=== PATIENT | female | born 1945 | race Caucasian/White ===

== ENCOUNTER → 2016-06-22 | Outpatient (REF) | payer MEDICARE, OTHER | LOC: M SFHCPLAZ 07:48 | PROVIDERS: ATTEND Family Medicine | DX: R73.01 Impaired fasting glucose (principal); Z79.899 Other long term (current) drug therapy ==

== ENCOUNTER → 2016-08-03 | Outpatient (CLI) | payer MEDICARE, BC ==
[~2016-08-03] MED LIST: ATEN25TA PO; AZEL0.1S3; DULE200A PO; IRBE75TA5 PO; MONT10TA2 PO; PROAAER10 PO; VESI5TAB2 PO; VOLT1GEL15 TD; ZYRT10CA PO
--- NOTE | 2016-08-03 10:09 | REPMRS ---
Patient History The patient states she had a clinical breast exam in 07/2016. No known family history of cancer. Digital Woman Screen Mammo: August 03, 2016 - Exam #: [id number] Bilateral CC and MLO view(s) were taken. Technologist: Jayde Givens, Technologist Prior study comparison: July 12, 2015, digital woman screen mammo performed at [facility]. July 10, 2014, digital woman screen mammo performed at [facility]. FINDINGS: There are scattered fibroglandular densities. There has been no change in the appearance of the mammogram from the prior studies. There is a mild amount of residual fibroglandular tissue which is fairly symmetric. There is no interval development of dominant mass, architectural distortion, or clustered microcalcification suggestive of malignancy. ASSESSMENT: BI-RADS/ACR category 1 mammogram. Negative. Recommendation Routine screening mammogram in 1 year (for women over age 40). This mammogram was interpreted with the aid of an FDA-approved computer-aided dectection system. Electronically Signed By: Alonzo Garrido MD 08/03/16 [id number]
--- NOTE | 2016-08-04 09:59 | DEXA ---
AP SPINE L1 - L4 1.035 -1.3 0.4 LT FEMUR TOTAL 0.998 -0.1 1.5 RT FEMUR TOTAL 0.943 -0.5 1.0 TOTAL BODY TOTAL OTHER DUAL FEMUR FRAX* ASSESSMENT Risk factors: None. 10 year probability of fracture Major osteoporotic fracture 8.7 % Hip fracture 1.0 % COMMENTS: Normal bone densitometry of the left hip. There is low bone density of the spine. There is low bone density of the right hip. The decreased density of the spine does represent a significant change. The decreased density of the left hip does represent a significant change. The increased density of the right hip does not represent a significant change. The density of the spine has decreased 17.9% since the initial exam on 2000. The spine density has decreased 8.7% since the most recent exam on 07/10/2014. The density of the left hip has decreased 7.5% since the initial exam on 2000. The density of the left hip has decreased 3.6% since the most recent exam on . The density of the right hip has decreased 11.3% since the initial exam on 12/21. The density of the right hip has increased 0.2% since the most recent exam on . FOLLOW-UP: Recommendation for the next bone density exam: 2 years. LON
== END ==
LOC: M WHC 08:03
PROVIDERS: ATTEND Family Medicine
DX: Z01.419 Encounter for gynecological examination (general) (routine) without abnormal findings (principal); Z12.31 Encounter for screening mammogram for malignant neoplasm of breast; M81.0 Age-related osteoporosis without current pathological fracture; Z12.12 Encounter for screening for malignant neoplasm of rectum
CPT/HCPCS: 77080; 82270; G0101; G0202

== ENCOUNTER 2016-09-17 06:37 | Outpatient (CLI) | payer MEDICARE, BC, OTHER ==
[~2016-09-17] VITALS: Ht 157.5 cm; Wt 83.9 kg
[2016-09-17] MEDS ORDERED: NS 1,000 ML IV SCH (07:15)
[2016-09-17] MEDS ORDERED: PROPOFOL 200 MG/20 ML VIAL As Ordered ONE (07:25)
--- NOTE | 2016-09-17 07:54 | ROOR ---
Patient Name: Mylene Nj Procedure Date: 09/17/2016 7:31 AM Date of : 1945 Age: 70 Room: [facility] Gender: Female Note Status: Finalized Procedure: Colonoscopy Indications: Screening for colorectal malignant neoplasm Providers: Devendra LIU MD Referring MD: Pérez Garcias MD Requesting Provider: Medicines: Monitored Anesthesia Care Complications: No immediate complications. Procedure: Pre-Anesthesia Assessment: - The heart rate, respiratory rate, oxygen saturations, blood pressure, adequacy of pulmonary ventilation, and response to care were monitored throughout the procedure. The Colonoscope was introduced through the anus and advanced to the cecum, identified by appendiceal orifice and ileocecal valve. The colonoscopy was performed without difficulty. The patient tolerated the procedure well. The quality of the bowel preparation was good. Findings: The perianal and digital rectal examinations were normal. A 3 mm polyp was found in the cecum. The polyp was sessile. The polyp was removed with a jumbo cold forceps. Resection and retrieval were complete. A 5 mm polyp was found in the sigmoid colon. The polyp was sessile. The polyp was removed with a cold snare. Resection and retrieval were complete. A few small-mouthed diverticula were found in the sigmoid colon. The exam was otherwise without abnormality on direct and retroflexion views. Impression: - One 3 mm polyp in the cecum, removed with a jumbo cold forceps. Resected and retrieved. - One 5 mm polyp in the sigmoid colon, removed with a cold snare. Resected and retrieved. - Diverticulosis in the sigmoid colon. - The examination was otherwise normal on direct and retroflexion views. Recommendation: - Repeat colonoscopy in 3 years for surveillance. - Telephone endoscopist for pathology results in 2 weeks. Devendra Liu MD Devendra LIU MD 09/17/2016 7:54:20 AM This report has been signed electronically. Number of Addenda: 0 Note Initiated On: 09/17/2016 7:31 AM Estimated Blood Loss: Estimated blood loss: none.
[2016-09-17 08:10] VITALS: BP 108/59
== END 2016-09-17 08:24 | disposition home or self-care (01) ==
LOC: M OPP 06:37
PROVIDERS: ATTEND Internal Medicine Gastroenterology
DX: Z12.11 Encounter for screening for malignant neoplasm of colon (principal); D12.0 Benign neoplasm of cecum; D12.5 Benign neoplasm of sigmoid colon; K57.30 Diverticulosis of large intestine without perforation or abscess without bleeding; I10 Essential (primary) hypertension; J45.909 Unspecified asthma, uncomplicated; M79.7 Fibromyalgia; Z79.899 Other long term (current) drug therapy; Z88.8 Allergy status to other drugs, medicaments and biological substances

== ENCOUNTER → 2016-10-21 | Outpatient (CLI) | payer MEDICARE, BC, OTHER ==
[2016-10-21 10:18] LABS: BASO % 0.9 % (0.0-1.0); EOS # 0.1 K/mm3 (0.0-0.50); LARGE UNSTAINED CELL # 0.1 K/mm3 (0.0-0.4); LARGE UNSTAINED CELL % 2.9 % (0.0-4.0); LYMPH # 1.3 K/mm3 (1.5-4.5); LYMPH % 31.4 % (24.0-44.0); MEAN CORPUSCULAR HEMOGLOBIN 28.6 pg (27.0-33.0); MEAN CORPUSCULAR HGB CONC 33.6 g/dl (32.0-36.5); MEAN CORPUSCULAR VOLUME 85.2 fl (80.0-96.0); MONO # 0.3 K/mm3 (0.0-0.8); MONO % 6.2 % (0.0-5.0); NEUTROPHILS # 2.3 K/mm3 (1.8-7.7); NEUTROPHILS % 55.6 % (36.0-66.0); PLATELET COUNT, AUTOMATED 227 k/mm3 (150-450); RED CELL DISTRIBUTION WIDTH 14.6 % (11.5-14.5)
[2016-10-21 10:35] LABS: ALBUMIN 3.9 GM/DL (3.2-5.2); ALBUMIN/GLOBULIN RATIO 1.05 (1.00-1.93); ALKALINE PHOSPHATASE 71 U/L (45-117); ALT/SGPT 30 U/L (12-78); ANION GAP 9 MEQ/L (8-16); AST/SGOT 17 U/L (15-37); BILIRUBIN,TOTAL 0.4 MG/DL (0.2-1.0); BLOOD UREA NITROGEN 19 MG/DL (7-18); CALCIUM LEVEL 8.2 MG/DL (8.8-10.2); CARBON DIOXIDE LEVEL 26 MEQ/L (21-32); CHLORIDE LEVEL 110 MEQ/L (98-107); CREATININE FOR GFR 0.69 MG/DL (0.55-1.02); GLOMERULAR FILTRATION RATE > 60.0 (>39); GLUCOSE, FASTING 100 MG/DL (83-110); POTASSIUM SERUM 4.1 MEQ/L (3.5-5.1); SODIUM LEVEL 145 MEQ/L (136-145); TOTAL PROTEIN 7.6 GM/DL (6.4-8.2)
== END ==
LOC: M WUC 08:27
PROVIDERS: ATTEND Family Medicine
DX: R73.01 Impaired fasting glucose (principal)

== ENCOUNTER → 2017-06-28 | Outpatient (CLI) | payer MEDICARE, BC, OTHER | LOC: M RAD 12:00 | DX: E04.1 Nontoxic single thyroid nodule (principal) | CPT/HCPCS: 76536 ==

== ENCOUNTER → 2017-07-14 | Outpatient (CLI) | payer MEDICARE, BC, OTHER ==
[~2017-07-14] MED LIST changes: -ATEN25TA PO; -AZEL0.1S3; -DULE200A PO; -IRBE75TA5 PO; +LIDOCAINE 1% MDV 20ML VIAL As Ordered; -MONT10TA2 PO; -PROAAER10 PO; -VESI5TAB2 PO; -VOLT1GEL15 TD; -ZYRT10CA PO
== END ==
LOC: M RADPRO 12:24
DX: E04.1 Nontoxic single thyroid nodule (principal)
CPT/HCPCS: 10022

== ENCOUNTER → 2017-07-30 | Outpatient (CLI) | payer MEDICARE, BC | LOC: M WHC 08:33 | DX: Z12.31 Encounter for screening mammogram for malignant neoplasm of breast (principal) | CPT/HCPCS: 77067 ==

== ENCOUNTER → 2017-12-03 | Outpatient (REF) | payer MEDICARE, OTHER ==
[2017-12-03 12:41] LABS: APPEARANCE, URINE CLEAR (CLEAR); BACTERIA, URINE AUTO NEGATIVE (NEGATIVE); BILIRUBIN, URINE AUTO NEGATIVE (NEGATIVE); BLOOD, URINE BLOOD NEGATIVE (NEGATIVE); COLOR, URINE YELLOW (YELLOW); GLUCOSE, URINE (UA) AUTO NEGATIVE (NEGATIVE); KETONE, URINE AUTO NEGATIVE (NEGATIVE); LEUKOCYTE ESTERASE, URINE AUTO 1+ (NEGATIVE); NITRITE, URINE AUTO NEGATIVE (NEGATIVE); PROTEIN, URINE AUTO NEGATIVE (NEGATIVE); RBC, URINE AUTO 0 /HPF (0-3); SPECIFIC GRAVITY URINE AUTO 1.013 (1.002-1.035); SQUAMOUS EPITHELIAL CELL UR AU 1 /HPF (0-6); UROBILINOGEN, URINE AUTO 0.2 mg/dL (0.0-2.0); WBC, URINE AUTO 2 /HPF (0-3)
[2017-12-03 12:48] LABS: ESTIMATED AVERAGE GLUCOSE 123 MG/DL (60-110); HEMOGLOBIN A1c 5.9 %
[2017-12-03 12:53] LABS: ALBUMIN 3.9 GM/DL (3.2-5.2); ALBUMIN/GLOBULIN RATIO 1.15 (1.00-1.93); ALKALINE PHOSPHATASE 70 U/L (45-117); ALT/SGPT 26 U/L (12-78); ANION GAP 5 MEQ/L (8-16); AST/SGOT 15 U/L (7-37); BILIRUBIN,TOTAL 0.4 MG/DL (0.2-1.0); BLOOD UREA NITROGEN 20 MG/DL (7-18); C REACTIVE PROTEIN QUANTITATIV < 0.30 MG/DL (0.00-0.30); CALCIUM LEVEL 8.6 MG/DL (8.8-10.2); CARBON DIOXIDE LEVEL 29 MEQ/L (21-32); CHLORIDE LEVEL 108 MEQ/L (98-107); CHOLESTEROL LEVEL 192 MG/DL (<200); CHOLESTEROL RISK RATIO 5.485 (<5); CREATININE FOR GFR 0.76 MG/DL (0.55-1.30); FREE T4 1.15 NG/DL (0.76-1.46); GLOMERULAR FILTRATION RATE > 60.0 (>39); GLUCOSE, FASTING 116 MG/DL (70-100); HDL CHOLESTEROL 35 MG/DL (>40); LDL CHOLESTEROL 112 MG/DL (<100); NON-HDL-C 157 MG/DL; POTASSIUM SERUM 4.3 MEQ/L (3.5-5.1); SODIUM LEVEL 142 MEQ/L (136-145); THYROID STIMULATING HORMONE 0.991 uIU/ML (0.358-3.740); TOTAL PROTEIN 7.3 GM/DL (6.4-8.2); TRIGLYCERIDES LEVEL 226 MG/DL (<150)
[2017-12-03 13:34] LABS: HEPATITIS C VIRUS ABY INDEX < 0.0 INDEX (<0.8)
[2017-12-03 14:30] LABS: CREATININE, URINE 84.1 MG/DL; MAU/CREAT RATIO 7.2 MCG/MG (0.0-30.0)
== END ==
LOC: M SFHCPLAZ 08:04
DX: E78.2 Mixed hyperlipidemia (principal); I10 Essential (primary) hypertension; Z79.899 Other long term (current) drug therapy
CPT/HCPCS: 84443

== ENCOUNTER → 2018-06-29 | Outpatient (REF) | payer MEDICARE, OTHER ==
[~2018-06-29] MED LIST changes: +ALEV220C2 PO; +ATEN25TA PO; +AZEL0.1S3; +BIOTCAP PO; +D 50CAP PO; +DULE200A PO; +FISH1CAP24 PO; +IRBE75TA5 PO; -LIDOCAINE 1% MDV 20ML VIAL As Ordered; +MONT10TA2 PO; +POTA75TA2 PO; +PROAAER10 PO; +RED1CAP5 PO; +TUMS500C PO; +VESI5TAB2 PO; +VOLT1GEL15 TD; +ZYRT10CA PO; +[UNRECOGNIZED DRUG - OTHER]; +[UNRECOGNIZED DRUG - OTHER]; +multizyme
[2018-06-29 11:07] LABS: BASO # 0.1 10^3/uL (0.0-0.2); BASO % 1.4 % (0.0-1.0); EOS # 0.1 10^3/uL (0.0-0.50); EOS % 2.1 % (0.0-3.0); HEMATOCRIT 41.9 % (36.0-47.0); LYMPH # 1.7 10^3/uL (1.5-4.5); LYMPH % 32.3 % (24.0-44.0); MEAN CORPUSCULAR HGB CONC 33.4 g/dl (32.0-36.5); MEAN CORPUSCULAR VOLUME 89.7 fl (80.0-96.0); MONO # 0.4 10^3/uL (0.0-0.8); MONO % 8.3 % (0.0-5.0); NEUTROPHILS # 2.9 10^3/uL (1.8-7.7); NEUTROPHILS % 55.7 % (36.0-66.0); PLATELET COUNT, AUTOMATED 251 10^3/uL (150-450); RED BLOOD COUNT 4.67 10^6/uL (4.00-5.40); WHITE BLOOD COUNT 5.2 10^3/uL (4.0-10.0)
[2018-06-29 11:11] LABS: APPEARANCE, URINE HAZY (CLEAR); BACTERIA, URINE AUTO NEGATIVE (NEGATIVE); BILIRUBIN, URINE AUTO NEGATIVE (NEGATIVE); BLOOD, URINE BLOOD NEGATIVE (NEGATIVE); COLOR, URINE YELLOW (YELLOW); GLUCOSE, URINE (UA) AUTO NEGATIVE (NEGATIVE); KETONE, URINE AUTO NEGATIVE (NEGATIVE); LEUKOCYTE ESTERASE, URINE AUTO 2+ (NEGATIVE); MUCUS, URINE SMALL (NEGATIVE); NITRITE, URINE AUTO NEGATIVE (NEGATIVE); PROTEIN, URINE AUTO NEGATIVE (NEGATIVE); RBC, URINE AUTO 6 /HPF (0-3); SQUAMOUS EPITHELIAL CELL UR AU 2 /HPF (0-6); UROBILINOGEN, URINE AUTO 0.2 mg/dL (0.0-2.0); WBC, URINE AUTO 15 /HPF (0-3)
[2018-06-29 11:33] LABS: ALBUMIN 3.7 GM/DL (3.2-5.2); ALT/SGPT 25 U/L (12-78); BILIRUBIN,TOTAL 0.5 MG/DL (0.2-1.0); BLOOD UREA NITROGEN 23 MG/DL (7-18); CALCIUM LEVEL 8.3 MG/DL (8.8-10.2); CARBON DIOXIDE LEVEL 29 MEQ/L (21-32); CHLORIDE LEVEL 106 MEQ/L (98-107); CHOLESTEROL LEVEL 169 MG/DL (<200); CREATININE FOR GFR 0.69 MG/DL (0.55-1.30); GLOMERULAR FILTRATION RATE > 60.0 (>39); GLUCOSE, FASTING 114 MG/DL (70-100); HDL CHOLESTEROL 34 MG/DL (>40); HEMOGLOBIN A1c 6.2 %; LDL CHOLESTEROL 99 MG/DL (<100); MAGNESIUM LEVEL 2.3 MG/DL (1.8-2.4); NON-HDL-C 135 MG/DL; POTASSIUM SERUM 4.2 MEQ/L (3.5-5.1); SODIUM LEVEL 140 MEQ/L (136-145); TOTAL PROTEIN 7.6 GM/DL (6.4-8.2); TRIGLYCERIDES LEVEL 181 MG/DL (<150)
[2018-06-29 12:52] LABS: MALB URINE SIEMENS 16.6 MG/L; MAU/CREAT RATIO 10.1 MCG/MG (0.0-30.0)
== END ==
LOC: M SFHCPLAZ 08:07
PROVIDERS: ATTEND Family Medicine
DX: I10 Essential (primary) hypertension (principal); R73.01 Impaired fasting glucose

== ENCOUNTER → 2018-07-08 | Outpatient (CLI) | payer MEDICARE, OTHER ==
--- NOTE | 2018-07-08 14:20 | REP ---
Clinical: Right hip pain. Technique: Neutral and frog lateral views of the right hip. Findings: Generalized age-related changes are appreciated. Subtle increased sclerosis to the acetabular roof with very minimal joint space narrowing and subtle marginal spurring noted. No acute fracture dislocation. No periarticular calcifications or loose bodies. Surrounding soft tissues normal. Impression: Generalized age-related changes. Electronically Signed by Rajan Pascal MD 07/08/2018 02:11 P
== END ==
LOC: M WUC 12:47
PROVIDERS: ATTEND Family Medicine
DX: M70.62 Trochanteric bursitis, left hip (principal)
CPT/HCPCS: 73502; 93005; G0463

== ENCOUNTER → 2018-07-18 | Outpatient (CLI) | payer MEDICARE, BC, OTHER ==
--- NOTE | 2018-07-18 13:57 | REP ---
REASON: Followup nodules. COMPARISON: 06/28/2017 The prior examination showed a dominant nodule on the right measuring 3.4 x 1.6 cm. That dominant nodule was drawn on the worksheet measuring smaller than all of the right lobe, which had a maximal length of 5.4 cm. Today's examination shows the right lobe of the thyroid to measure 6 x 2 x 1.2 cm and left lobe 5.5 x 2.2 cm in creased slightly from the prior exam. There is a complex cystic and solid mass of the right lobe which measures 2.9 x 1.6 x 1.8 cm, smaller in size from the prior examination minimally. Other smaller tiny nodules complex and solid are seen in the thyroid gland, unchanged. The isthmus measures 1.3 cm, essentially unchanged. IMPRESSION: Essentially no change. Electronically Signed by Alli Forrest DO 07/18/2018 02:00 P
== END ==
LOC: M RAD 12:29
PROVIDERS: ATTEND Family Medicine
DX: E04.2 Nontoxic multinodular goiter (principal)

== ENCOUNTER → 2018-08-02 | Outpatient (CLI) | payer MEDICARE, BC ==
--- NOTE | 2018-08-02 10:50 | REPMRS ---
Patient History The patient states she has not had a clinical breast exam in over a year. No known family history of cancer. No Hormone Replacement Therapy 3D TOMOSYNTHESIS WAS PERFORMED. The [facility] lifetime risk for breast cancer is 4.3%. Digital Woman Screen Mammo: August 02, 2018 - Exam #: [id number] Bilateral CC and MLO view(s) were taken. Technologist: Jayde Givens, Technologist Prior study comparison: July 30, 2017, bilateral digital woman screen mammo performed at [facility]. August 03, 2016, digital woman screen mammo performed at [facility]. FINDINGS: There are scattered fibroglandular densities. There has been no change in the appearance of the mammogram from the prior studies. There is a mild amount of residual fibroglandular tissue which is fairly symmetric. There is no interval development of dominant mass, architectural distortion, or clustered microcalcification suggestive of malignancy. Assessment: BI-RADS/ACR category 1 mammogram. Negative Mammogram. Recommendation Routine screening mammogram in 1 year (for women over age 40). This mammogram was interpreted with the aid of an FDA-approved computer-aided dectection system. Electronically Signed By: Alonzo Garrido MD 08/02/18 [id number]
--- NOTE | 2018-08-04 13:21 | DEXA ---
AP SPINE L1 - L4 1.056 -1.1 0.6 LT FEMUR TOTAL 1.030 0.2 1.8 LT NECK 0.972 -0.5 1.4 RT FEMUR TOTAL 0.933 -0.6 1.1 RT NECK 0.880 -1.4 0.7 TOTAL BODY TOTAL OTHER COMMENTS: Normal bone densitometry of the left hip. There is low bone density of the spine. There is low bone density of the right hip. The density of the spine has decreased 16.2% since the initial exam on 12/21/2000. The spine density has increased 2.0% since the most recent exam on 08/03/2016. The density of the left hip has decreased 4.5% since the initial exam on 12/21/2000. The density of the left hip has increased 3.2% since the most recent exam on 08/03/2016. The density of the right hip has decreased 12.2% since the initial exam on 12/21/2000. The density of the right hip has decreased 1.1% since the most recent exam on 08/03/2016. FOLLOW-UP: Recommendation for the next bone density exam: 2 years. LON
== END ==
LOC: M WHC 06:40
PROVIDERS: ATTEND Family Medicine
DX: Z12.31 Encounter for screening mammogram for malignant neoplasm of breast (principal); M85.80 Other specified disorders of bone density and structure, unspecified site

== ENCOUNTER → 2018-08-15 | Outpatient (CLI) | payer MEDICARE, BC, OTHER ==
--- NOTE | 2018-08-15 16:37 | REP ---
Clinical: Arthralgia. Technique: AP, lateral, bilateral oblique and sunrise views of the right knee. Findings: Mild tricompartmental osteoarthritic degenerative changes are appreciated. Findings include subchondral sclerosis, joint space narrowing, cortical irregularity and subtle marginal spurring/osteophyte formation. [place] view also demonstrates fraying along the anterior patellar margin suggesting patellar tendinopathy. Impression: Mild tricompartmental osteoarthritic degenerative changes. Electronically Signed by Rajan Pascal MD 08/15/2018 04:29 P
== END ==
LOC: M WUC 15:53
PROVIDERS: ATTEND Physician Assistant Medical
DX: M17.11 Unilateral primary osteoarthritis, right knee (principal); M25.561 Pain in right knee
CPT/HCPCS: 73564; G0463

== ENCOUNTER → 2018-08-25 | Outpatient (REF) | payer MEDICARE, OTHER | LOC: M SFHCPLAZ 12:00 | PROVIDERS: ATTEND Physician Assistant Medical | DX: D22.71 Melanocytic nevi of right lower limb, including hip (principal) | CPT/HCPCS: 11104; 88305; G0463 ==

== ENCOUNTER → 2018-11-15 | Outpatient (REF) | payer MEDICARE, OTHER ==
[2018-11-15 17:13] LABS: BASO # 0.1 10^3/uL (0.0-0.2); BASO % 1.2 % (0.0-1.0); EOS # 0.1 10^3/uL (0.0-0.5); EOS % 2.3 % (0.0-3.0); HEMATOCRIT 41.9 % (36.0-47.0); HEMOGLOBIN 13.7 g/dl (12.0-15.5); LYMPH # 1.8 10^3/uL (1.5-5.0); LYMPH % 29.1 % (24.0-44.0); MEAN CORPUSCULAR HEMOGLOBIN 29.3 pg (27.0-33.0); MEAN CORPUSCULAR HGB CONC 32.7 g/dl (32.0-36.5); MEAN CORPUSCULAR VOLUME 89.5 fl (80.0-96.0); MONO # 0.4 10^3/uL (0.0-0.8); MONO % 7.3 % (0.0-5.0); NEUTROPHILS # 3.6 10^3/uL (1.5-8.5); NEUTROPHILS % 59.9 % (36.0-66.0); PLATELET COUNT, AUTOMATED 249 10^3/uL (150-450); RED BLOOD COUNT 4.68 10^6/uL (4.00-5.40)
[2018-11-15 17:19] LABS: INR 1.01
[2018-11-15 17:20] LABS: PARTIAL THROMBOPLASTIN TIME 29.8 SECONDS (25.0-38.4)
[2018-11-15 17:21] LABS: ALBUMIN 3.8 GM/DL (3.2-5.2); ALT/SGPT 25 U/L (12-78); BILIRUBIN,TOTAL 0.5 MG/DL (0.2-1.0); BLOOD UREA NITROGEN 24 MG/DL (7-18); CALCIUM LEVEL 8.8 MG/DL (8.8-10.2); CARBON DIOXIDE LEVEL 28 MEQ/L (21-32); CHLORIDE LEVEL 107 MEQ/L (98-107); CREATININE FOR GFR 0.74 MG/DL (0.55-1.30); GLOMERULAR FILTRATION RATE > 60.0 (>39); GLUCOSE, FASTING 88 MG/DL (70-100); POTASSIUM SERUM 4.2 MEQ/L (3.5-5.1); SODIUM LEVEL 141 MEQ/L (136-145); THYROID STIMULATING HORMONE 0.864 uIU/ML (0.358-3.740); TOTAL PROTEIN 7.7 GM/DL (6.4-8.2)
[2018-11-15 17:26] LABS: HEMOGLOBIN A1c 5.7 %
== END ==
LOC: M SFHCPLAZ 13:15
PROVIDERS: ATTEND Family Medicine
DX: R73.01 Impaired fasting glucose (principal); I10 Essential (primary) hypertension

== ENCOUNTER → 2019-10-11 | Outpatient (CLI) | payer MEDICARE, BC, OTHER ==
[~2019-10-11] MED LIST changes: +IRBE75TA4 PO; -IRBE75TA5 PO; -MONT10TA2 PO; +MONT10TA4 PO
[2019-10-11 14:22] LABS: APPEARANCE, URINE CLEAR (CLEAR); BACTERIA, URINE AUTO NEGATIVE (NEGATIVE); BILIRUBIN, URINE AUTO NEGATIVE (NEGATIVE); BLOOD, URINE BLOOD NEGATIVE (NEGATIVE); COLOR, URINE YELLOW (YELLOW); GLUCOSE, URINE (UA) AUTO NEGATIVE (NEGATIVE); KETONE, URINE AUTO NEGATIVE (NEGATIVE); LEUKOCYTE ESTERASE, URINE AUTO TRACE (NEGATIVE); MUCUS, URINE SMALL (NEGATIVE); NITRITE, URINE AUTO NEGATIVE (NEGATIVE); PROTEIN, URINE AUTO NEGATIVE (NEGATIVE); RBC, URINE AUTO 1 /HPF (0-3); SQUAMOUS EPITHELIAL CELL UR AU 1 /HPF (0-6); UROBILINOGEN, URINE AUTO 0.2 mg/dL (0.0-2.0); WBC, URINE AUTO 7 /HPF (0-3)
[2019-10-19 13:07] LABS: ANTI DOUBLE STRAND-DNA AB <1 IU/mL (0-9); ANTI DS-DNA AB Negative (Negative); ANTI-HISTONE ANTIBODIES 0.4 Units (0.0-0.9); ANTINUCLEAR ANTIBODIES DIRECT Positive (Negative); RNP ANTIBODIES 6.8 AI (0.0-0.9); SJOGREN'S ANTI SS-A <0.2 AI (0.0-0.9); SJOGREN'S ANTI SS-B <0.2 AI (0.0-0.9); SMITH ANTIBODIES 3.5 AI (0.0-0.9)
== END ==
LOC: M LAB 12:26
PROVIDERS: ATTEND Dermatology
DX: C44.722 Squamous cell carcinoma of skin of right lower limb, including hip (principal); R21 Rash and other nonspecific skin eruption; L30.9 Dermatitis, unspecified
CPT/HCPCS: 11103; 11104; 36415; 81001; 83520; 85652; 86038; 86140; 86225; 86235; 88305; G0463

== ENCOUNTER → 2019-10-11 | Outpatient (REF) | payer MEDICARE, OTHER | LOC: M LAB REF 11:30 | PROVIDERS: ATTEND Dermatology | DX: C44.722 Squamous cell carcinoma of skin of right lower limb, including hip (principal); L30.9 Dermatitis, unspecified ==

== ENCOUNTER → 2019-11-29 | Outpatient (CLI) | payer MEDICARE, OTHER ==
[2019-11-29 12:16] LABS: APPEARANCE, URINE CLEAR (CLEAR); BACTERIA, URINE AUTO NEGATIVE (NEGATIVE); BILIRUBIN, URINE AUTO NEGATIVE (NEGATIVE); BLOOD, URINE BLOOD NEGATIVE (NEGATIVE); COLOR, URINE YELLOW (YELLOW); GLUCOSE, URINE (UA) AUTO NEGATIVE (NEGATIVE); KETONE, URINE AUTO NEGATIVE (NEGATIVE); LEUKOCYTE ESTERASE, URINE AUTO TRACE (NEGATIVE); MUCUS, URINE SMALL (NEGATIVE); NITRITE, URINE AUTO NEGATIVE (NEGATIVE); PROTEIN, URINE AUTO 1+ mg/dL (NEGATIVE); RBC, URINE AUTO 1 /HPF (0-3); SPECIFIC GRAVITY URINE AUTO 1.013 (1.002-1.035); SQUAMOUS EPITHELIAL CELL UR AU 1 /HPF (0-6); UROBILINOGEN, URINE AUTO 0.2 mg/dL (0.0-2.0); WBC, URINE AUTO 4 /HPF (0-3)
[2019-11-29 12:40] LABS: ALBUMIN 3.8 GM/DL (3.2-5.2); ALT/SGPT 52 U/L (12-78); BILIRUBIN,TOTAL 0.5 MG/DL (0.2-1.0); BLOOD UREA NITROGEN 17 MG/DL (7-18); CALCIUM LEVEL 8.7 MG/DL (8.8-10.2); CARBON DIOXIDE LEVEL 30 MEQ/L (21-32); CHLORIDE LEVEL 108 MEQ/L (98-107); CREATININE FOR GFR 0.86 MG/DL (0.55-1.30); GLOMERULAR FILTRATION RATE > 60.0 (>39); GLUCOSE, FASTING 95 MG/DL (70-100); POTASSIUM SERUM 4.3 MEQ/L (3.5-5.1); SODIUM LEVEL 142 MEQ/L (136-145); TOTAL PROTEIN 7.7 GM/DL (6.4-8.2)
[2019-11-29 12:48] LABS: TOTAL 25(OH) VITAMIN D 62.5 NG/ML (30.0-100.0)
[2019-11-29 12:49] LABS: PTH INTACT 50.6 PG/ML (18.5-88.0)
[2019-11-29 12:52] LABS: MAU/CREAT RATIO 98.7 MCG/MG (0.0-30.0)
[2019-11-29 13:03] LABS: HEMOGLOBIN A1c 6.1 %
== END ==
LOC: M WUC 08:58
PROVIDERS: ATTEND Family Medicine
DX: E55.9 Vitamin D deficiency, unspecified (principal); R73.01 Impaired fasting glucose; Z79.899 Other long term (current) drug therapy

== ENCOUNTER → 2019-12-12 | Outpatient (REF) | payer MEDICARE, OTHER ==
[~2019-12-12] MED LIST changes: -MONT10TA4 PO; +MONT5TAB2 PO
== END ==
LOC: M LAB REF 13:59
PROVIDERS: ATTEND Dermatology
DX: L90.5 Scar conditions and fibrosis of skin (principal)

== ENCOUNTER → 2019-12-14 | Outpatient (CLI) | payer MEDICARE, BC, OTHER ==
[~2019-12-14] MED LIST changes: +MONT10TA4 PO; -MONT5TAB2 PO
--- NOTE | 2019-12-14 12:25 | REP ---
INDICATION: THYROID NODULE. COMPARISON: 07/18/2018. TECHNIQUE: Real-time sonographic evaluation of thyroid performed. FINDINGS: Right lobe measures approximately 5.2 x 2.3 by 2.1 cm and left lobe 4.4 x 1.5 x 1.9 cm. Is thickness is enlarged. There is diffuse heterogeneous echotexture again noted. Innumerable nodules are again seen throughout both lobes of the thyroid and throughout the is stenosis. Findings are essentially unchanged compared to the prior exam. Largest nodule on the right is in the lower pole measuring 2.6 x 2.7 x 1.6 cm. The largest nodule on the left is in the lower pole and measures 1.8 cm in diameter. IMPRESSION: Essentially stable exam when compared to 07/18/2018, as discussed in detail above. <Electronically signed by Alonzo Garrido > 12/14/19 [id number]
== END ==
LOC: M RAD 10:41
PROVIDERS: ATTEND Family Medicine
DX: E04.1 Nontoxic single thyroid nodule (principal)

== ENCOUNTER → 2019-12-20 | Outpatient (CLI) | payer MEDICARE, OTHER ==
--- NOTE | 2019-12-20 11:07 | REPMRS ---
Patient History The patient states she had a clinical breast exam in December 2019. Patient has history of skin cancer at age 74. Family history of breast cancer at age 79 in sister. No Hormone Replacement Therapy 3D TOMOSYNTHESIS WAS PERFORMED. The [facility] lifetime risk for breast cancer is 6.9%. [place] breast density b. Digital Woman Screen Mammo: December 20, 2019 - Exam #: [id number] Bilateral CC and MLO view(s) were taken. Technologist: Mikayla Beaulieu, Technologist Prior study comparison: August 02, 2018, bilateral digital woman screen mammo performed at [facility]. July 30, 2017, bilateral digital woman screen mammo performed at [facility]. FINDINGS: There are scattered fibroglandular densities. There has been no change in the appearance of the mammogram from the prior studies. There is a mild amount of residual fibroglandular tissue which is fairly symmetric. There is no interval development of dominant mass, architectural distortion, or clustered microcalcification suggestive of malignancy. Assessment: BI-RADS/ACR category 1 mammogram. Negative Mammogram. Recommendation Routine screening mammogram in 1 year (for women over age 40). This mammogram was interpreted with the aid of an FDA-approved computer-aided dectection system. Electronically Signed By: Alonzo Garrido MD 12/20/19 [id number]
== END ==
LOC: M WHC 09:28
PROVIDERS: ATTEND Nurse Practitioner Family
DX: Z12.31 Encounter for screening mammogram for malignant neoplasm of breast (principal); Z85.828 Personal history of other malignant neoplasm of skin; Z80.3 Family history of malignant neoplasm of breast

== ENCOUNTER → 2019-12-22 | Outpatient (REF) | payer MEDICARE, OTHER ==
[~2019-12-22] MED LIST changes: +MONT10TA10 PO; -MONT10TA4 PO
== END ==
LOC: M LAB REF 13:01
PROVIDERS: ATTEND Dermatology
DX: T81.49XA Infection following a procedure, other surgical site, initial encounter (principal)

== ENCOUNTER → 2020-08-12 | Outpatient (CLI) | payer MEDICARE, OTHER ==
[2020-08-12 10:29] LABS: HEMOGLOBIN 10.3 g/dl (12.0-15.5); MEAN CORPUSCULAR HEMOGLOBIN 28.2 pg (27.0-33.0); MEAN CORPUSCULAR HGB CONC 32.2 g/dl (32.0-36.5); MEAN CORPUSCULAR VOLUME 87.7 fl (80.0-96.0); PLATELET COUNT, AUTOMATED 154 10^3/uL (150-450); RED BLOOD COUNT 3.65 10^6/uL (4.00-5.40); WHITE BLOOD COUNT 2.7 10^3/uL (4.0-10.0)
[2020-08-12 11:06] LABS: ATYPICAL LYMPH 4 % (0-5); EOSINOPHILS 4 % (0-3); LYMPHOCYTES 23 % (16-44); MONOCYTES 1 % (0-5); NEUTROPHILS 68 % (28-66)
[2020-08-12 11:07] LABS: OVALOCYTES 1+; PLATELET ESTIMATE DECREASED (NORMAL)
[2020-08-12 11:26] LABS: TOTAL PROTEIN,RANDOM URINE 24.3 MG/DL (0.0-12.0)
[2020-08-12 12:03] LABS: ALBUMIN 3.3 GM/DL (3.2-5.2); ALT/SGPT 21 U/L (12-78); BILIRUBIN,TOTAL 0.3 MG/DL (0.2-1.0); BLOOD UREA NITROGEN 15 MG/DL (7-18); CALCIUM LEVEL 8.6 MG/DL (8.8-10.2); CARBON DIOXIDE LEVEL 27 MEQ/L (21-32); CHLORIDE LEVEL 106 MEQ/L (98-107); CHOLESTEROL LEVEL 126 MG/DL (<200); CHOLESTEROL RISK RATIO 4.064 (<5); COMPLEMENT C3 41 MG/DL (90-180); COMPLEMENT C4 5 MG/DL (10-40); CREATININE FOR GFR 0.68 MG/DL (0.55-1.30); GLOMERULAR FILTRATION RATE > 60.0 (>39); GLUCOSE, FASTING 89 MG/DL (70-100); HDL CHOLESTEROL 31 MG/DL (>40); LDL CHOLESTEROL 74 MG/DL (<100); NON-HDL-C 95 MG/DL; SODIUM LEVEL 135 MEQ/L (136-145); TOTAL PROTEIN 8.2 GM/DL (6.4-8.2); TRIGLYCERIDES LEVEL 105 MG/DL (<150)
[2020-08-13 14:09] LABS: INSULIN LEVEL 9.7 uIU/mL (2.6-24.9); SSA SJOGRENS A <0.2 AI (0.0-0.9); SSB SJOGRENS B <0.2 AI (0.0-0.9)
== END ==
LOC: M WUC 08:37
PROVIDERS: ATTEND Family Medicine
DX: R73.01 Impaired fasting glucose (principal); M32.9 Systemic lupus erythematosus, unspecified; I10 Essential (primary) hypertension; E78.2 Mixed hyperlipidemia

== ENCOUNTER → 2020-08-16 | Outpatient (CLI) | payer MEDICARE, OTHER ==
[2020-08-16 10:47] LABS: APPEARANCE, URINE HAZY (CLEAR); BACTERIA, URINE AUTO NEGATIVE (NEGATIVE); BILIRUBIN, URINE AUTO NEGATIVE (NEGATIVE); BLOOD, URINE BLOOD NEGATIVE (NEGATIVE); CALCIUM OXALATE CRYSTALS MODERATE; COLOR, URINE YELLOW (YELLOW); GLUCOSE, URINE (UA) AUTO NEGATIVE (NEGATIVE); KETONE, URINE AUTO NEGATIVE (NEGATIVE); LEUKOCYTE ESTERASE, URINE AUTO NEGATIVE (NEGATIVE); MUCUS, URINE SMALL (NEGATIVE); NITRITE, URINE AUTO NEGATIVE (NEGATIVE); PROTEIN, URINE AUTO NEGATIVE (NEGATIVE); RBC, URINE AUTO 10 /HPF (0-3); SPECIFIC GRAVITY URINE AUTO 1.019 (1.002-1.035); SQUAMOUS EPITHELIAL CELL UR AU 1 /HPF (0-6); UROBILINOGEN, URINE AUTO 0.2 mg/dL (0.0-2.0); WBC, URINE AUTO 3 /HPF (0-3)
[2020-08-16 10:49] LABS: HEMATOCRIT 31.4 % (36.0-47.0)
[2020-08-16 11:34] LABS: C REACTIVE PROTEIN QUANTITATIV < 0.30 MG/DL (0.00-0.30); COMPLEMENT C3 38 MG/DL (90-180); COMPLEMENT C4 5 MG/DL (10-40); CPK CREATINE PHOSPHOKINASE 171 U/L (26-192); VITAMIN B12 LEVEL 976 PG/ML (247-911)
[2020-08-21 10:04] LABS: DRVV SCREEN 44.4 SEC
[2020-08-21 10:11] LABS: PTT LUPUS TYPE ANTICOAG SCREEN 1.1 (0-1.2)
== END ==
LOC: M PLALAB 08:52
PROVIDERS: ATTEND Family Medicine
DX: E53.8 Deficiency of other specified B group vitamins (principal); M32.9 Systemic lupus erythematosus, unspecified

== ENCOUNTER → 2020-08-20 | Outpatient (REF) | payer MEDICARE, OTHER, BC | LOC: M SFHCPLAZ 09:52 | PROVIDERS: ATTEND Family Medicine | DX: L43.0 Hypertrophic lichen planus (principal) | CPT/HCPCS: 11104; 11105; 88300; G0463 ==

== ENCOUNTER → 2020-08-21 | Outpatient (CLI) | payer MEDICARE, BC, OTHER ==
[2020-08-21 14:15] LABS: HEMOGLOBIN A1c 5.6 %
== END ==
LOC: M PLALAB 08:56
PROVIDERS: ATTEND Family Medicine
DX: M32.9 Systemic lupus erythematosus, unspecified (principal)

== ENCOUNTER → 2020-08-22 | Outpatient (REF) | payer MEDICARE, BC, OTHER ==
[2020-08-22 14:11] LABS: CREATININE, URINE 85.4 MG/DL; URINE TOTAL PROTEIN 14.2 MG/DL (0-12)
[2020-08-22 21:09] LABS: CREATININE 24 HOUR, URINE 811.3 MG/24HR (600-1800); TOTAL PROTEIN 24 HOUR URINE 134.9 MG/24HR (50-150)
== END ==
LOC: M SFHCPLAZ 13:29
PROVIDERS: ATTEND Family Medicine
DX: M32.9 Systemic lupus erythematosus, unspecified (principal)
CPT/HCPCS: 81050; 82570; 84156; G0463

== ENCOUNTER → 2020-09-09 | Outpatient (CLI) | payer MEDICARE, BC, OTHER ==
--- NOTE | 2020-09-09 09:34 | REP ---
INDICATION: FLE / LUPUS RELATED SYNDROME / HTN; SLE. COMPARISON: None. TECHNIQUE: Transabdominal urinary tract sonography. Bilateral renal artery Doppler assessment. FINDINGS: Renal cortical echogenicity pattern is normal bilaterally and contours are smooth. There is no evidence of hydronephrosis, cyst, mass, or calculus in either kidney. The right kidney measures 10.4 x 4.3 x 5.8 cm. Left renal dimensions are 10.5 x 4.6 x 6.0 cm. Renal Doppler data: Peak systolic flow velocity in the abdominal aorta at the level of the main renal arteries is normal measured at 92.3 centimeters/second. Peak systolic flow velocity in the right main renal artery is recorded at 137 and that in the left at 79 centimeters/second. These values are normal. Renal to aortic flow velocity ratios are therefore normal at 1.4 on the right and 0.9 on the left. Resistive indices and acceleration times are measured in the intralobar arteries of the upper, mid, and lower pole of each kidney in these values are normal bilaterally. IMPRESSION: Normal urinary tract sonography. No renal Doppler evidence to suggest renal artery stenosis. <Electronically signed by Bebeto Florentino > 09/09/20 [id number]
== END ==
LOC: M RAD 08:29
PROVIDERS: ATTEND Family Medicine
DX: M32.9 Systemic lupus erythematosus, unspecified (principal)

== ENCOUNTER → 2020-11-18 | Outpatient (CLI) | payer MEDICARE, BC, OTHER ==
[2020-11-18 13:45] LABS: BASO % 0.8 % (0.0-1.0); EOS # 0.1 10^3/uL (0.0-0.5); EOS % 2.8 % (0.0-3.0); HEMATOCRIT 29.9 % (36.0-47.0); HEMATOCRIT 30.2 % (36.0-47.0); HEMOGLOBIN 9.9 g/dl (12.0-15.5); LYMPH # 0.7 10^3/uL (1.5-5.0); LYMPH % 28.3 % (24.0-44.0); MEAN CORPUSCULAR HEMOGLOBIN 28.9 pg (27.0-33.0); MEAN CORPUSCULAR HGB CONC 32.8 g/dl (32.0-36.5); MONO # 0.2 10^3/uL (0.0-0.8); MONO % 9.7 % (2.0-8.0); NEUTROPHILS # 1.4 10^3/uL (1.5-8.5); PLATELET COUNT, AUTOMATED 135 10^3/uL (150-450); RED BLOOD COUNT 3.43 10^6/uL (4.00-5.40); WHITE BLOOD COUNT 2.5 10^3/uL (4.0-10.0)
[2020-11-18 14:12] LABS: CREATININE,RANDOM URINE 99.3 MG/DL; TOTAL PROTEIN,RANDOM URINE 46.1 MG/DL (0.0-12.0)
[2020-11-18 14:13] LABS: ALBUMIN 2.9 GM/DL (3.2-5.2); ALT/SGPT 25 U/L (12-78); BILIRUBIN,TOTAL 0.3 MG/DL (0.2-1.0); BLOOD UREA NITROGEN 20 MG/DL (7-18); CALCIUM LEVEL 8.6 MG/DL (8.8-10.2); CARBON DIOXIDE LEVEL 30 MEQ/L (21-32); CHLORIDE LEVEL 110 MEQ/L (98-107); COMPLEMENT C4 9 MG/DL (10-40); FERRITIN 267 NG/ML (8-252); GLOMERULAR FILTRATION RATE > 60.0 (>39); GLUCOSE, FASTING 90 MG/DL (70-100); NT-PRO BNP 104 PG/ML (<450); POTASSIUM SERUM 4.2 MEQ/L (3.5-5.1); SODIUM LEVEL 143 MEQ/L (136-145); TOTAL PROTEIN 7.8 GM/DL (6.4-8.2)
[2020-11-18 14:45] LABS: ERYTHROCYTE SEDIMENTATION RATE 65 mm/hr (0-30)
[2020-11-18 15:53] LABS: HEMOGLOBIN A1c 5.4 %
[2020-11-20 16:09] LABS: INSULIN LEVEL 10.8 uIU/mL (2.6-24.9); INTRINSIC FACTOR ANTIBODY 2.1 AU/mL (0.0-1.1)
== END ==
LOC: M PLALAB 09:09
PROVIDERS: ATTEND Family Medicine
DX: M32.9 Systemic lupus erythematosus, unspecified (principal); R73.01 Impaired fasting glucose; E53.8 Deficiency of other specified B group vitamins; Z79.51 Long term (current) use of inhaled steroids; Z79.899 Other long term (current) drug therapy

== ENCOUNTER → 2020-12-06 | Outpatient (CLI) | payer MEDICARE, BC, OTHER ==
--- NOTE | 2020-12-06 13:05 | REP ---
INDICATION: THYROID NODULE. COMPARISON: 12/14/2019. TECHNIQUE: Real-time sonographic evaluation of thyroid performed. FINDINGS: The thyroid is not significantly enlarged. The right lobe of the thyroid measures 4.8 x 2.1 x 2.1 cm and the left lobe 4.2 x 2.2 x 1.7 cm. Echotexture is diffusely heterogeneous and nodular. Innumerable nodules are present bilaterally. The largest are measured. In the right lower pole there is a heterogeneous nodule with multiple small cystic areas, measuring 2.7 x 1.6 x 2.5 cm. This is unchanged. There is an adjacent 1 cm nodule just medial to this. In the left lower pole there is a heterogeneous hypoechoic nodule which is essentially stable, measuring 2.0 x 1.2 x 1.6 cm. There is an adjacent 8 mm nodule anterior to this. IMPRESSION: No change since prior study as discussed above. <Electronically signed by Alonzo Garrido > 12/06/20 [id number]
== END ==
LOC: M RAD 11:20
PROVIDERS: ATTEND Family Medicine
DX: E04.1 Nontoxic single thyroid nodule (principal)

== ENCOUNTER → 2020-12-17 | Outpatient (CLI) | payer MEDICARE, BC, OTHER ==
[2020-12-17 14:02] LABS: BASO % 0.7 % (0.0-1.0); EOS # 0.1 10^3/uL (0.0-0.5); EOS % 2.5 % (0.0-3.0); HEMATOCRIT 31.6 % (36.0-47.0); HEMOGLOBIN 10.1 g/dl (12.0-15.5); LYMPH # 0.7 10^3/uL (1.5-5.0); LYMPH % 26.4 % (24.0-44.0); MEAN CORPUSCULAR HEMOGLOBIN 28.6 pg (27.0-33.0); MEAN CORPUSCULAR VOLUME 89.5 fl (80.0-96.0); MONO # 0.3 10^3/uL (0.0-0.8); MONO % 10.5 % (2.0-8.0); NEUTROPHILS # 1.6 10^3/uL (1.5-8.5); NEUTROPHILS % 59.5 % (36.0-66.0); PLATELET COUNT, AUTOMATED 179 10^3/uL (150-450); RED BLOOD COUNT 3.53 10^6/uL (4.00-5.40); WHITE BLOOD COUNT 2.8 10^3/uL (4.0-10.0)
[2020-12-17 14:21] LABS: ERYTHROCYTE SEDIMENTATION RATE 51 mm/hr (0-30)
[2020-12-17 14:33] LABS: TOTAL PROTEIN,RANDOM URINE 37.9 MG/DL (0.0-12.0)
[2020-12-17 14:52] LABS: ALBUMIN 3.1 GM/DL (3.2-5.2); ALT/SGPT 29 U/L (12-78); BILIRUBIN,TOTAL 0.2 MG/DL (0.2-1.0); BLOOD UREA NITROGEN 21 MG/DL (7-18); CALCIUM LEVEL 8.5 MG/DL (8.8-10.2); CARBON DIOXIDE LEVEL 29 MEQ/L (21-32); CHLORIDE LEVEL 109 MEQ/L (98-107); COMPLEMENT C3 50 MG/DL (90-180); COMPLEMENT C4 12 MG/DL (10-40); CREATININE FOR GFR 0.68 MG/DL (0.55-1.30); GLOMERULAR FILTRATION RATE > 60.0 (>39); GLUCOSE, FASTING 95 MG/DL (70-100); IRON (FE) 51 UG/DL (50-170); PERCENT SATURATION 20.9 % (13.2-45.0); POTASSIUM SERUM 4.5 MEQ/L (3.5-5.1); SODIUM LEVEL 140 MEQ/L (136-145); TOTAL IRON BINDING CAPACITY 244 UG/DL (250-450); TOTAL PROTEIN 7.8 GM/DL (6.4-8.2); VITAMIN B12 LEVEL 675 PG/ML (247-911)
[2020-12-18 09:06] LABS: APPEARANCE, URINE HAZY (CLEAR); BACTERIA, URINE AUTO 1+ (NEGATIVE); BILIRUBIN, URINE AUTO NEGATIVE (NEGATIVE); BLOOD, URINE BLOOD NEGATIVE (NEGATIVE); CALCIUM OXALATE CRYSTALS LARGE; COLOR, URINE YELLOW (YELLOW); GLUCOSE, URINE (UA) AUTO NEGATIVE (NEGATIVE); KETONE, URINE AUTO NEGATIVE (NEGATIVE); LEUKOCYTE ESTERASE, URINE AUTO 1+ (NEGATIVE); MUCUS, URINE SMALL (NEGATIVE); NITRITE, URINE AUTO POSITIVE (NEGATIVE); PROTEIN, URINE AUTO NEGATIVE (NEGATIVE); RBC, URINE AUTO 2 /HPF (0-3); SPECIFIC GRAVITY URINE AUTO 1.017 (1.002-1.035); SQUAMOUS EPITHELIAL CELL UR AU 0 /HPF (0-6); UROBILINOGEN, URINE AUTO 0.2 mg/dL (0.0-2.0); WBC, URINE AUTO 18 /HPF (0-3)
== END ==
LOC: M PLALAB 10:32
PROVIDERS: ATTEND Family Medicine
DX: E53.8 Deficiency of other specified B group vitamins (principal); M32.9 Systemic lupus erythematosus, unspecified
CPT/HCPCS: 36415; 80053; 81001; 82570; 82607; 83010; 83550; 84156; 85025; 85046; 85652; 86140; 86160; 86880; G0463

== ENCOUNTER → 2020-12-20 | Outpatient (CLI) | payer MEDICARE, BC ==
[~2020-12-20] MED LIST changes: -MONT10TA10 PO; +MONT10TA97 PO
== END ==
LOC: M WHC 09:00
PROVIDERS: ATTEND Family Medicine
DX: Z01.419 Encounter for gynecological examination (general) (routine) without abnormal findings (principal); Z12.31 Encounter for screening mammogram for malignant neoplasm of breast; Z80.3 Family history of malignant neoplasm of breast; R92.1 Mammographic calcification found on diagnostic imaging of breast
CPT/HCPCS: 77063; 77067; G0101

== ENCOUNTER → 2021-08-15 | Outpatient (CLI) | payer MEDICARE, BC ==
[2021-08-15 10:36] LABS: APPEARANCE, URINE CLOUDY (CLEAR); BACTERIA, URINE AUTO 3+ (NEGATIVE); BILIRUBIN, URINE AUTO NEGATIVE (NEGATIVE); BLOOD, URINE BLOOD NEGATIVE (NEGATIVE); COLOR, URINE YELLOW (YELLOW); GLUCOSE, URINE (UA) AUTO NEGATIVE (NEGATIVE); KETONE, URINE AUTO NEGATIVE (NEGATIVE); LEUKOCYTE ESTERASE, URINE AUTO 3+ (NEGATIVE); MUCUS, URINE SMALL (NEGATIVE); NITRITE, URINE AUTO POSITIVE (NEGATIVE); PROTEIN, URINE AUTO 1+ mg/dL (NEGATIVE); RBC, URINE AUTO 13 /HPF (0-3); SPECIFIC GRAVITY URINE AUTO 1.014 (1.002-1.035); SQUAMOUS EPITHELIAL CELL UR AU 1 /HPF (0-6); UROBILINOGEN, URINE AUTO 0.2 mg/dL (0.0-2.0); WBC, URINE AUTO TNTC /HPF (0-3)
[2021-08-15 10:41] LABS: HEMATOCRIT 32.3 % (36.0-47.0); HEMOGLOBIN 10.6 g/dl (12.0-15.5); MEAN CORPUSCULAR HEMOGLOBIN 29.3 pg (27.0-33.0); MEAN CORPUSCULAR HGB CONC 32.8 g/dl (32.0-36.5); MEAN CORPUSCULAR VOLUME 89.2 fl (80.0-96.0); PLATELET COUNT, AUTOMATED 174 10^3/uL (150-450); RED BLOOD COUNT 3.62 10^6/uL (4.00-5.40); WHITE BLOOD COUNT 3.2 10^3/uL (4.0-10.0)
[2021-08-15 10:43] LABS: ALBUMIN 3.4 GM/DL (3.2-5.2); ALT/SGPT 23 U/L (12-78); BILIRUBIN,TOTAL 0.3 MG/DL (0.2-1.0); BLOOD UREA NITROGEN 16 MG/DL (7-18); CALCIUM LEVEL 8.8 MG/DL (8.8-10.2); CARBON DIOXIDE LEVEL 29 MEQ/L (21-32); CHLORIDE LEVEL 106 MEQ/L (98-107); COMPLEMENT C3 78 MG/DL (90-180); COMPLEMENT C4 8 MG/DL (10-40); CREATININE FOR GFR 0.75 MG/DL (0.55-1.30); GLOMERULAR FILTRATION RATE > 60.0 (>39); GLUCOSE, FASTING 89 MG/DL (70-100); SODIUM LEVEL 141 MEQ/L (136-145); TOTAL PROTEIN 7.5 GM/DL (6.4-8.2)
[2021-08-15 10:51] LABS: INR 0.92; PROTHROMBIN TIME 12.8 SECONDS (12.7-14.5)
[2021-08-15 10:52] LABS: PARTIAL THROMBOPLASTIN TIME 28.6 SECONDS (25.9-37.0)
[2021-08-15 11:08] LABS: TOTAL PROTEIN,RANDOM URINE 38.8 MG/DL (0.0-12.0)
[2021-08-15 11:30] LABS: ERYTHROCYTE SEDIMENTATION RATE 48 mm/hr (0-30)
[2021-08-15 11:42] LABS: ATYPICAL LYMPH 5 % (0-5); EOSINOPHILS 1 % (0-3); LYMPHOCYTES 20 % (16-44); MONOCYTES 4 % (0-5); NEUTROPHILS 70 % (28-66); OVALOCYTES 2+
[2021-08-15 11:43] LABS: ANISOCYTOSIS 1+; PLATELET ESTIMATE NORMAL (NORMAL)
[2021-08-15 11:56] LABS: HEPATITIS B SURFACE ANTIBODY NEGATIVE (POSITIVE); VITAMIN B12 LEVEL 428 PG/ML (247-911)
[2021-08-15 12:07] LABS: HEPATITIS B SURFACE ANTIGEN NEGATIVE (NEGATIVE)
[2021-08-15 12:34] LABS: HEPATITIS C VIRUS ABY INDEX 0.1 INDEX (<0.8)
[2021-08-15 12:35] LABS: HEPATITIS B CORE ANTIBODY IGM NEGATIVE (NEGATIVE)
[2021-08-20 00:08] LABS: ANA (HEP2) Positive (.); ANTI DS-DNA AB Negative (Negative); CYCLIC CITRULLINATED PEPTIDE 10 units (0-19); HEPATITIS B CORE ANTIBODY IGG Negative (Negative); HEPATITIS BE ANTIBODY Negative (Negative); HEPATITIS BE ANTIGEN Negative (Negative)
== END ==
LOC: M WUC 08:11
PROVIDERS: ATTEND Family Medicine
DX: M32.9 Systemic lupus erythematosus, unspecified (principal); E53.8 Deficiency of other specified B group vitamins

== ENCOUNTER → 2021-08-20 | Outpatient (REF) | payer MEDICARE, BC, OTHER | LOC: M SFHCDERM 14:01 | PROVIDERS: ATTEND Physician Assistant | DX: L57.0 Actinic keratosis (principal) ==

== ENCOUNTER → 2021-09-09 | Outpatient (POV) | payer MEDICARE, BC, OTHER ==
[~2021-09-09] MED LIST changes: +CYAN1000VL IM; +FOLI0.4T5 PO; +FOLI1TAB11 PO; +METF500T13 PO; +PANT40TA29 PO; +PLAQ200T4 PO; +POTA595T8 PO; +REST0.05 OP; +VITA500045 PO
== END ==
LOC: M TMIRPOV 09:21
PROVIDERS: ATTEND Radiology Diagnostic Radiology
DX: J84.89 Other specified interstitial pulmonary diseases (principal); I10 Essential (primary) hypertension; J45.909 Unspecified asthma, uncomplicated; M32.9 Systemic lupus erythematosus, unspecified; R80.9 Proteinuria, unspecified; Z79.51 Long term (current) use of inhaled steroids; Z79.84 Long term (current) use of oral hypoglycemic drugs; Z79.899 Other long term (current) drug therapy; Z88.6 Allergy status to analgesic agent; Z88.8 Allergy status to other drugs, medicaments and biological substances

== ENCOUNTER → 2021-09-18 | Outpatient (CLI) | payer MEDICARE, BC, OTHER | LOC: M LABSMTC 10:52 | PROVIDERS: ATTEND Anesthesiology | DX: Z01.818 Encounter for other preprocedural examination (principal); Z11.52 Encounter for screening for COVID-19 ==

== ENCOUNTER → 2021-09-22 | Outpatient (CLI) | payer MEDICARE, BC, OTHER ==
[~2021-09-22] MED LIST changes: +LIDOCAINE 1% MDV 20ML VIAL As Ordered ONE; +MIDAZOLAM INJ 2MG/2ML VIAL (J2250 PER 1MG) As Ordered ONE; +NS 1,000 ML IV SCH; +fentaNYL 100 MCG/2 ML INJECTION As Ordered ONE
[2021-09-22 15:10] VITALS: BP 162/72
== END ==
LOC: M IRPRO 10:45
PROVIDERS: ATTEND Family Medicine
DX: M32.14 Glomerular disease in systemic lupus erythematosus (principal); Z79.51 Long term (current) use of inhaled steroids; Z79.84 Long term (current) use of oral hypoglycemic drugs; Z88.6 Allergy status to analgesic agent; Z88.8 Allergy status to other drugs, medicaments and biological substances
CPT/HCPCS: 77012; 88300; 99152; J2250; J3010

== ENCOUNTER → 2021-11-05 | Outpatient (CLI) | payer MEDICARE, BC, OTHER ==
[~2021-11-05] MED LIST changes: -DULE200A PO; -LIDOCAINE 1% MDV 20ML VIAL As Ordered ONE; -MIDAZOLAM INJ 2MG/2ML VIAL (J2250 PER 1MG) As Ordered ONE; +MOME13HF7 PO; -NS 1,000 ML IV SCH; -fentaNYL 100 MCG/2 ML INJECTION As Ordered ONE
[2021-11-05 10:19] LABS: BASO % 0.3 % (0.0-1.0); EOS # 0.1 10^3/uL (0.0-0.5); HEMATOCRIT 33.8 % (36.0-47.0); HEMOGLOBIN 10.8 g/dl (12.0-15.5); LYMPH # 0.7 10^3/uL (1.5-5.0); LYMPH % 20.4 % (24.0-44.0); MEAN CORPUSCULAR HEMOGLOBIN 28.7 pg (27.0-33.0); MEAN CORPUSCULAR VOLUME 89.9 fl (80.0-96.0); MONO # 0.4 10^3/uL (0.0-0.8); MONO % 11.6 % (2.0-8.0); NEUTROPHILS # 2.1 10^3/uL (1.5-8.5); NEUTROPHILS % 64.7 % (36.0-66.0); PLATELET COUNT, AUTOMATED 177 10^3/uL (150-450); RED BLOOD COUNT 3.76 10^6/uL (4.00-5.40); WHITE BLOOD COUNT 3.3 10^3/uL (4.0-10.0)
[2021-11-05 11:00] LABS: ALBUMIN 3.3 GM/DL (3.2-5.2); ALT/SGPT 29 U/L (12-78); BILIRUBIN,TOTAL 0.3 MG/DL (0.2-1.0); BLOOD UREA NITROGEN 18 MG/DL (7-18); CALCIUM LEVEL 8.5 MG/DL (8.8-10.2); CARBON DIOXIDE LEVEL 30 MEQ/L (21-32); CHLORIDE LEVEL 105 MEQ/L (98-107); CREATININE FOR GFR 0.66 MG/DL (0.55-1.30); FREE T4 1.14 NG/DL (0.76-1.46); GLOMERULAR FILTRATION RATE > 60.0 (>39); GLUCOSE, FASTING 87 MG/DL (70-100); POTASSIUM SERUM 4.1 MEQ/L (3.5-5.1); SODIUM LEVEL 139 MEQ/L (136-145); THYROID STIMULATING HORMONE 0.917 uIU/ML (0.358-3.740); TOTAL PROTEIN 7.3 GM/DL (6.4-8.2)
[2021-11-05 11:40] LABS: PTH INTACT 19.4 PG/ML (18.5-88.0); TOTAL 25(OH) VITAMIN D 95.2 NG/ML (30.0-100.0)
[2021-11-05 14:28] LABS: COMPLEMENT C3 88 MG/DL (90-180); COMPLEMENT C4 15 MG/DL (10-40)
== END ==
LOC: M WUC 08:24
PROVIDERS: ATTEND Family Medicine
DX: R80.9 Proteinuria, unspecified (principal); M32.9 Systemic lupus erythematosus, unspecified; E53.8 Deficiency of other specified B group vitamins; E55.9 Vitamin D deficiency, unspecified; E04.1 Nontoxic single thyroid nodule; Z79.899 Other long term (current) drug therapy

== ENCOUNTER → 2022-07-23 | Outpatient (CLI) | payer MEDICARE, BC, OTHER ==
[2022-07-23 14:17] LABS: BASO % 1.1 % (0.0-1.0); EOS # 0.1 10^3/uL (0.0-0.5); EOS % 3.3 % (0.0-3.0); HEMATOCRIT 37.9 % (36.0-47.0); HEMOGLOBIN 12.7 g/dl (12.0-15.5); LYMPH # 0.7 10^3/uL (1.5-5.0); LYMPH % 20.3 % (24.0-44.0); MEAN CORPUSCULAR HEMOGLOBIN 29.5 pg (27.0-33.0); MEAN CORPUSCULAR HGB CONC 33.5 g/dl (32.0-36.5); MEAN CORPUSCULAR VOLUME 87.9 fl (80.0-96.0); MONO # 0.5 10^3/uL (0.0-0.8); MONO % 13.1 % (2.0-8.0); NEUTROPHILS # 2.2 10^3/uL (1.5-8.5); NEUTROPHILS % 62.2 % (36.0-66.0); PLATELET COUNT, AUTOMATED 254 10^3/uL (150-450); RED BLOOD COUNT 4.31 10^6/uL (4.00-5.40); WHITE BLOOD COUNT 3.6 10^3/uL (4.0-10.0)
[2022-07-23 14:39] LABS: TOTAL PROTEIN,RANDOM URINE 11.4 MG/DL (0.0-14.0)
[2022-07-23 14:46] LABS: ALBUMIN 4.2 G/DL (3.2-5.2); ALKALINE PHOSPHATASE 70 U/L (46-116); ALT/SGPT 16 U/L (7.0-40); AST/SGOT 13 U/L (<34); BILIRUBIN,TOTAL 0.5 MG/DL (0.3-1.2); BLOOD UREA NITROGEN 19 MG/DL (9-23); CALCIUM LEVEL 8.4 MG/DL (8.3-10.6); CARBON DIOXIDE LEVEL 30 MMOL/L (20-31); CHLORIDE LEVEL 105 MMOL/L (98-107); CREATININE FOR GFR 0.71 MG/DL (0.55-1.30); GLOMERULAR FILTRATION RATE > 60.0 (>39); GLUCOSE, FASTING 81 MG/DL (74-106); POTASSIUM SERUM 4.3 MMOL/L (3.5-5.1); SODIUM LEVEL 141 MMOL/L (136-145); TOTAL PROTEIN 7.2 G/DL (5.7-8.2)
[2022-07-23 14:47] LABS: PTH INTACT 33.3 PG/ML (18.5-88.0)
[2022-07-23 14:48] LABS: COMPLEMENT C4 31.3 MG/DL (12-36); FERRITIN 45.6 NG/ML (7.3-270.7); TOTAL 25(OH) VITAMIN D 81.3 NG/ML (20.0-100.0); VITAMIN B12 LEVEL 364 PG/ML (211-911)
== END ==
LOC: M PLALAB 11:37
PROVIDERS: ATTEND Family Medicine
DX: E55.9 Vitamin D deficiency, unspecified (principal); M32.9 Systemic lupus erythematosus, unspecified; I10 Essential (primary) hypertension; E53.8 Deficiency of other specified B group vitamins; D22.9 Melanocytic nevi, unspecified; Z79.899 Other long term (current) drug therapy

== ENCOUNTER → 2022-07-29 | Outpatient (CLI) | payer MEDICARE, BC, OTHER | LOC: M RAD 15:10 | PROVIDERS: ATTEND Family Medicine | DX: E04.1 Nontoxic single thyroid nodule (principal) ==

== ENCOUNTER → 2022-08-05 | Outpatient (CLI) | payer MEDICARE, BC, OTHER | LOC: M WHC 08:50 | PROVIDERS: ATTEND Nurse Practitioner Family | DX: Z12.31 Encounter for screening mammogram for malignant neoplasm of breast (principal); Z13.820 Encounter for screening for osteoporosis; M85.88 Other specified disorders of bone density and structure, other site; M85.851 Other specified disorders of bone density and structure, right thigh ==

== ENCOUNTER → 2023-07-14 | Outpatient (CLI) | payer MEDICARE, BC ==
[~2023-07-14] MED LIST changes: +IRBE75TA11 PO; -IRBE75TA4 PO
[2023-07-14 14:11] LABS: BASO % 0.5 % (0.0-1.0); EOS # 0.4 10^3/uL (0.0-0.5); EOS % 7.9 % (0.0-3.0); HEMATOCRIT 38.5 % (36.0-47.0); HEMOGLOBIN 12.7 g/dl (12.0-15.5); LYMPH # 0.5 10^3/uL (1.5-5.0); LYMPH % 9.5 % (24.0-44.0); MEAN CORPUSCULAR HEMOGLOBIN 29.8 pg (27.0-33.0); MEAN CORPUSCULAR VOLUME 90.4 fl (80.0-96.0); MONO # 0.6 10^3/uL (0.0-0.8); MONO % 10.4 % (2.0-8.0); NEUTROPHILS % 71.5 % (36.0-66.0); PLATELET COUNT, AUTOMATED 229 10^3/uL (150-450); RED BLOOD COUNT 4.26 10^6/uL (4.00-5.40); WHITE BLOOD COUNT 5.6 10^3/uL (4.0-10.0)
[2023-07-14 14:32] LABS: HEMOGLOBIN A1c 5.6 % (4.0-6.0)
[2023-07-14 14:34] LABS: ERYTHROCYTE SEDIMENTATION RATE 21 mm/hr (0-30)
[2023-07-14 14:38] LABS: C REACTIVE PROTEIN QUANTITATIV < 0.40 MG/DL (<1.0)
[2023-07-14 14:39] LABS: CHOLESTEROL LEVEL 176 MG/DL (<200); HDL CHOLESTEROL 35.9 MG/DL (>40); LDL CHOLESTEROL 82.1 MG/DL (<100); NON-HDL-C 140.1 MG/DL; TRIGLYCERIDES LEVEL 290 MG/DL (<150)
[2023-07-14 14:42] LABS: FREE T4 1.26 NG/DL (0.89-1.76)
[2023-07-14 14:43] LABS: FERRITIN 40.1 NG/ML (7.3-270.7); THYROID STIMULATING HORMONE 0.938 uIU/ML (0.55-4.78)
== END ==
LOC: M PLALAB 09:08
PROVIDERS: ATTEND Family Medicine
DX: I10 Essential (primary) hypertension (principal); E78.2 Mixed hyperlipidemia; R73.01 Impaired fasting glucose; Z86.39 Personal history of other endocrine, nutritional and metabolic disease

== ENCOUNTER → 2023-07-19 | Outpatient (CLI) | payer MEDICARE, BC | LOC: M PLAIMG 13:50 → M PLALAB 13:50 | PROVIDERS: ATTEND Family Medicine | DX: M47.812 Spondylosis without myelopathy or radiculopathy, cervical region (principal) ==

== ENCOUNTER → 2023-07-19 | Outpatient (REF) | payer MEDICARE, BC | LOC: M SFHCPLAZ 13:16 | PROVIDERS: ATTEND Family Medicine | DX: E55.9 Vitamin D deficiency, unspecified (principal); I10 Essential (primary) hypertension; E78.2 Mixed hyperlipidemia; R73.01 Impaired fasting glucose; E53.8 Deficiency of other specified B group vitamins; M32.9 Systemic lupus erythematosus, unspecified ==

== ENCOUNTER → 2023-07-22 | Outpatient (REF) | payer MEDICARE, BC | LOC: M SFHCPLAZ 13:25 | PROVIDERS: ATTEND Family Medicine | DX: E55.9 Vitamin D deficiency, unspecified (principal); I10 Essential (primary) hypertension; E78.2 Mixed hyperlipidemia; R73.01 Impaired fasting glucose; E53.8 Deficiency of other specified B group vitamins; M32.9 Systemic lupus erythematosus, unspecified ==

== ENCOUNTER → 2023-08-10 | Outpatient (CLI) | payer MEDICARE, BC | LOC: M WHC 09:19 | PROVIDERS: ATTEND Nurse Practitioner Family | DX: Z12.31 Encounter for screening mammogram for malignant neoplasm of breast (principal) ==

== ENCOUNTER 2023-08-20 19:43 | Emergency (ER) | payer MEDICARE, BC ==
[~2023-08-20] VITALS: Ht 157.5 cm; Wt 76.4 kg
[2023-08-20 20:02] VITALS: TEMP 99
[2023-08-20 20:26] LABS: VENOUS BASE EXCESS -0.7 (-2.0-2.0); VENOUS HCO3 25.6 MMOL/L (23.0-27.0); VENOUS O2 SATURATION 44.3 % (60.0-80.0); VENOUS PARTIAL PRESSURE CO2 48.5 mmHg (38.0-50.0); VENOUS PARTIAL PRESSURE O2 24.6 mmHg (30.0-50.0); VENOUS STANDARD HCO3 22.7 MMOL/L; VENOUS TOTAL CO2 27.1 MMOL/L (24.0-28.0)
[2023-08-20] MEDS: NS 1,000 ML IV ONE (20:38)
[2023-08-20 20:41] LABS: BASO % 0.4 % (0.0-1.0); EOS # 0.3 10^3/uL (0.0-0.5); EOS % 6.7 % (0.0-3.0); HEMATOCRIT 39.9 % (36.0-47.0); HEMOGLOBIN 12.9 g/dl (12.0-15.5); LYMPH # 0.5 10^3/uL (1.5-5.0); LYMPH % 10.5 % (24.0-44.0); MEAN CORPUSCULAR HEMOGLOBIN 29.7 pg (27.0-33.0); MEAN CORPUSCULAR HGB CONC 32.3 g/dl (32.0-36.5); MEAN CORPUSCULAR VOLUME 91.7 fl (80.0-96.0); MONO # 0.5 10^3/uL (0.0-0.8); MONO % 9.9 % (2.0-8.0); NEUTROPHILS # 3.7 10^3/uL (1.5-8.5); NEUTROPHILS % 72.3 % (36.0-66.0); PLATELET COUNT, AUTOMATED 242 10^3/uL (150-450); RED BLOOD COUNT 4.35 10^6/uL (4.00-5.40); WHITE BLOOD COUNT 5.1 10^3/uL (4.0-10.0)
[2023-08-20 20:54] LABS: CK-MB VALUE MASS < 1.0 NG/ML (<3.6)
[2023-08-20 20:56] LABS: BLOOD UREA NITROGEN 18 MG/DL (9-23); CALCIUM LEVEL 8.9 MG/DL (8.3-10.6); CARBON DIOXIDE LEVEL 29 MMOL/L (20-31); CHLORIDE LEVEL 108 MMOL/L (98-107); CREATININE FOR GFR 0.89 MG/DL (0.55-1.30); GLOMERULAR FILTRATION RATE > 60.0 (>39); GLUCOSE, FASTING 141 MG/DL (74-106); MAGNESIUM LEVEL 2.4 MG/DL (1.8-2.4); POTASSIUM SERUM 4.3 MMOL/L (3.5-5.1); SODIUM LEVEL 143 MMOL/L (136-145)
[2023-08-20 20:58] LABS: THYROID STIMULATING HORMONE 0.686 uIU/ML (0.55-4.78)
[2023-08-20 21:03] LABS: CPK CREATINE PHOSPHOKINASE 73 U/L (34-145); MB/CK RELATIVE INDEX 1.36 (< OR =4)
[2023-08-20 21:15] VITALS: BP 154/82; O2SAT 99
== END 2023-08-20 21:38 | disposition home or self-care (01) ==
LOC: M ED 19:43
DX: R55 Syncope and collapse (principal); Z79.899 Other long term (current) drug therapy; Z88.8 Allergy status to other drugs, medicaments and biological substances

== ENCOUNTER → 2023-09-23 | Outpatient (CLI) | payer MEDICARE, BC | LOC: M RAD 15:35 | PROVIDERS: ATTEND Family Medicine | DX: E04.1 Nontoxic single thyroid nodule (principal) ==

== ENCOUNTER → 2023-09-28 | Outpatient (REF) | payer MEDICARE, BC | LOC: M SFHCPLAZ 16:51 | PROVIDERS: ATTEND Family Medicine | DX: E55.9 Vitamin D deficiency, unspecified (principal); I10 Essential (primary) hypertension; E78.2 Mixed hyperlipidemia; R73.01 Impaired fasting glucose; E53.8 Deficiency of other specified B group vitamins; M32.9 Systemic lupus erythematosus, unspecified ==

== ENCOUNTER → 2023-11-05 | Outpatient (CLI) | payer MEDICARE, BC | LOC: M PLARAD 07:40 | PROVIDERS: ATTEND Family Medicine | DX: M47.812 Spondylosis without myelopathy or radiculopathy, cervical region (principal) ==

== ENCOUNTER → 2023-11-08 | Outpatient (REF) | payer MEDICARE, BC | LOC: M SFHCPLAZ 13:07 | PROVIDERS: ATTEND Family Medicine | DX: E55.9 Vitamin D deficiency, unspecified (principal); I10 Essential (primary) hypertension; E78.2 Mixed hyperlipidemia; R73.01 Impaired fasting glucose; E53.8 Deficiency of other specified B group vitamins; M32.9 Systemic lupus erythematosus, unspecified ==

== ENCOUNTER → 2024-06-26 | Outpatient (CLI) | payer MEDICARE, BC ==
[~2024-06-26] MED LIST changes: +BIOT5CAP9 PO; -BIOTCAP PO
[2024-06-26 11:34] LABS: APPEARANCE, URINE CLEAR (CLEAR); BACTERIA, URINE AUTO NEGATIVE (NEGATIVE); BILIRUBIN, URINE AUTO NEGATIVE (NEGATIVE); BLOOD, URINE BLOOD NEGATIVE (NEGATIVE); COLOR, URINE YELLOW (YELLOW); GLUCOSE, URINE (UA) AUTO NEGATIVE (NEGATIVE); KETONE, URINE AUTO NEGATIVE (NEGATIVE); LEUKOCYTE ESTERASE, URINE AUTO TRACE (NEGATIVE); NITRITE, URINE AUTO NEGATIVE (NEGATIVE); PROTEIN, URINE AUTO NEGATIVE (NEGATIVE); RBC, URINE AUTO 1 /HPF (0-3); SPECIFIC GRAVITY URINE AUTO 1.014 (1.002-1.035); SQUAMOUS EPITHELIAL CELL UR AU 1 /HPF (0-6); UROBILINOGEN, URINE AUTO 0.2 mg/dL (0.0-2.0); WBC, URINE AUTO 12 /HPF (0-3)
[2024-06-26 11:40] LABS: BASO % 0.6 % (0.0-1.0); EOS # 0.1 10^3/uL (0.0-0.5); EOS % 2.7 % (0.0-3.0); HEMATOCRIT 38.7 % (36.0-47.0); HEMOGLOBIN 12.4 g/dl (12.0-15.5); LYMPH # 0.7 10^3/uL (1.5-5.0); LYMPH % 14.5 % (24.0-44.0); MEAN CORPUSCULAR HEMOGLOBIN 28.9 pg (27.0-33.0); MEAN CORPUSCULAR VOLUME 90.2 fl (80.0-96.0); MONO # 0.7 10^3/uL (0.0-0.8); MONO % 13.3 % (2.0-8.0); NEUTROPHILS # 3.5 10^3/uL (1.5-8.5); NEUTROPHILS % 68.7 % (36.0-66.0); PLATELET COUNT, AUTOMATED 246 10^3/uL (150-450); RED BLOOD COUNT 4.29 10^6/uL (4.00-5.40); WHITE BLOOD COUNT 5.1 10^3/uL (4.0-10.0)
[2024-06-26 11:46] LABS: ERYTHROCYTE SEDIMENTATION RATE 20 mm/hr (0-30)
[2024-06-26 12:21] LABS: C REACTIVE PROTEIN QUANTITATIV < 0.50 MG/DL (<1.0)
[2024-06-26 12:22] LABS: ALBUMIN 3.8 G/DL (3.2-5.2); ALKALINE PHOSPHATASE 69 U/L (35-104); ALT/SGPT 31 U/L (7.0-40); AST/SGOT 19 U/L (<34); BILIRUBIN,TOTAL 0.5 MG/DL (0.3-1.2); BLOOD UREA NITROGEN 26 MG/DL (9-23); CALCIUM LEVEL 8.8 MG/DL (8.3-10.6); CARBON DIOXIDE LEVEL 29 MMOL/L (20-31); CHLORIDE LEVEL 106 MMOL/L (98-107); CREATININE FOR GFR 0.65 MG/DL (0.55-1.30); GLOMERULAR FILTRATION RATE 89.5 (>39); GLUCOSE, FASTING 95 MG/DL (74-106); POTASSIUM SERUM 4.8 MMOL/L (3.5-5.1); SODIUM LEVEL 143 MMOL/L (136-145); TOTAL IRON BINDING CAPACITY 332 UG/DL (250-425); TOTAL PROTEIN 6.7 G/DL (5.7-8.2)
[2024-06-26 12:23] LABS: IRON (FE) 71 UG/DL (50-170); PERCENT SATURATION 21.4 % (13.2-45.0)
[2024-06-26 12:43] LABS: FERRITIN 43.4 NG/ML (7.3-270.7)
[2024-06-26 12:54] LABS: VITAMIN B12 LEVEL 453 PG/ML (211-911)
[2024-06-26 13:14] LABS: PTH INTACT 44.8 PG/ML (18.5-88.0)
== END ==
LOC: M PLALAB 08:57
PROVIDERS: ATTEND Family Medicine
DX: E55.9 Vitamin D deficiency, unspecified (principal); I10 Essential (primary) hypertension; E78.2 Mixed hyperlipidemia; R73.01 Impaired fasting glucose; E53.8 Deficiency of other specified B group vitamins; M32.9 Systemic lupus erythematosus, unspecified; D50.9 Iron deficiency anemia, unspecified

== ENCOUNTER → 2024-08-21 | Outpatient (CLI) | payer MEDICARE, BC | LOC: M WHC 08:29 | PROVIDERS: ATTEND Family Medicine | DX: Z12.31 Encounter for screening mammogram for malignant neoplasm of breast (principal); R92.323 Mammographic fibroglandular density, bilateral breasts; M85.88 Other specified disorders of bone density and structure, other site; M85.851 Other specified disorders of bone density and structure, right thigh; M85.852 Other specified disorders of bone density and structure, left thigh ==

== ENCOUNTER → 2024-09-04 | Outpatient (CLI) | payer MEDICARE, BC ==
[2024-09-04 13:28] LABS: BASO # 0.0 10^3/uL (0.0-0.2); BASO % 0.7 % (0.0-1.0); EOS # 0.2 10^3/uL (0.0-0.5); EOS % 3.9 % (0.0-3.0); LYMPH # 0.8 10^3/uL (1.5-5.0); LYMPH % 20.1 % (24.0-44.0); MONO # 0.5 10^3/uL (0.0-0.8); MONO % 11.4 % (2.0-8.0); NEUTROPHILS # 2.6 10^3/uL (1.5-8.5); NEUTROPHILS % 63.4 % (36.0-66.0); PLATELET COUNT, AUTOMATED 291 10^3/uL (150-450)
[2024-09-04 13:45] LABS: AMORPHOUS SEDIMENT SMALL (NEGATIVE); APPEARANCE, URINE HAZY (CLEAR); BACTERIA, URINE AUTO NEGATIVE (NEGATIVE); BILIRUBIN, URINE AUTO NEGATIVE (NEGATIVE); BLOOD, URINE BLOOD NEGATIVE (NEGATIVE); ERYTHROCYTE SEDIMENTATION RATE 24 mm/hr (0-30); GLUCOSE, URINE (UA) AUTO NEGATIVE (NEGATIVE); KETONE, URINE AUTO NEGATIVE (NEGATIVE); LEUKOCYTE ESTERASE, URINE AUTO 2+ (NEGATIVE); MUCUS, URINE SMALL (NEGATIVE); NITRITE, URINE AUTO NEGATIVE (NEGATIVE); PROTEIN, URINE AUTO NEGATIVE (NEGATIVE); RBC, URINE AUTO 2 /HPF (0-3); SPECIFIC GRAVITY URINE AUTO 1.016 (1.002-1.035); SQUAMOUS EPITHELIAL CELL UR AU 1 /HPF (0-6); UROBILINOGEN, URINE AUTO 0.2 mg/dL (0.0-2.0); WBC, URINE AUTO 34 /HPF (0-3)
[2024-09-04 13:57] LABS: C REACTIVE PROTEIN QUANTITATIV < 0.50 MG/DL (<1.0)
[2024-09-04 13:59] LABS: VITAMIN B12 LEVEL 471 PG/ML (211-911)
[2024-09-04 14:01] LABS: ALT/SGPT 23 U/L (7.0-40); AST/SGOT 19 U/L (<34); CALCIUM LEVEL 9.0 MG/DL (8.3-10.6); CARBON DIOXIDE LEVEL 28 MMOL/L (20-31); CHLORIDE LEVEL 106 MMOL/L (98-107); CHOLESTEROL LEVEL 201 MG/DL (<200); CHOLESTEROL RISK RATIO 4.66 (<5); CREATININE FOR GFR 0.73 MG/DL (0.55-1.30); GLOMERULAR FILTRATION RATE 83.6 (>39); IRON (FE) 53 UG/DL (50-170); LDL CHOLESTEROL 133.5 MG/DL (<100); NON-HDL-C 157.9 MG/DL; PERCENT SATURATION 15.3 % (13.2-45.0); POTASSIUM SERUM 4.7 MMOL/L (3.5-5.1); SODIUM LEVEL 145 MMOL/L (136-145); TRIGLYCERIDES LEVEL 122 MG/DL (<150)
[2024-09-04 14:13] LABS: ESTIMATED AVERAGE GLUCOSE 120.0 MG/DL (60-110)
[2024-09-04 16:05] LABS: PTH INTACT 29.3 PG/ML (18.5-88.0)
== END ==
LOC: M PLALAB 09:29
PROVIDERS: ATTEND Family Medicine
DX: E55.9 Vitamin D deficiency, unspecified (principal); I10 Essential (primary) hypertension; E78.2 Mixed hyperlipidemia; R73.01 Impaired fasting glucose; E53.8 Deficiency of other specified B group vitamins; M32.9 Systemic lupus erythematosus, unspecified; R76.8 Other specified abnormal immunological findings in serum; D50.9 Iron deficiency anemia, unspecified

== ENCOUNTER → 2024-09-20 | Outpatient (REF) | payer MEDICARE, BC | LOC: M LAB REF 16:49 | PROVIDERS: ATTEND Internal Medicine Nephrology | DX: R80.9 Proteinuria, unspecified (principal) ==

== ENCOUNTER 2024-10-04 11:07 | Outpatient (CLI) | payer MEDICARE, BC ==
[~2024-10-04] VITALS: Ht 157.5 cm; Wt 77.3 kg
[~2024-10-04 11:07] MED LIST changes: +ALBUTEROL SULFATE 2.5 MG/0.5 ML INH CONCENTRATE NEB SOLN INH PRN; +EPINEPHrine INJ 1 MG/ML 1ML AMP IM PRN
[2024-10-04 11:30] VITALS: BP 157/89; O2SAT 97
[2024-10-04] MEDS: FERRIC CARBOXYMALTOSE 750 MG (VIAL MATE) IN 100ML NS IV ONE (11:48)
[2024-10-04 12:35] VITALS: BP 138/80; O2SAT 98
== END 2024-10-04 12:35 ==
LOC: M INFU 11:07
PROVIDERS: ATTEND Family Medicine
DX: D50.9 Iron deficiency anemia, unspecified (principal); Z88.8 Allergy status to other drugs, medicaments and biological substances
CPT/HCPCS: 96365; J1439

== ENCOUNTER → 2024-11-21 | Outpatient (CLI) | payer MEDICARE, BC ==
[~2024-11-21] MED LIST changes: -ALBUTEROL SULFATE 2.5 MG/0.5 ML INH CONCENTRATE NEB SOLN INH PRN; -EPINEPHrine INJ 1 MG/ML 1ML AMP IM PRN; +ERGO125013 PO; -FOLI0.4T5 PO; +FOLI400T2 PO; -VITA500045 PO
[2024-11-21 14:28] LABS: BASO # 0.0 10^3/uL (0.0-0.2); BASO % 0.8 % (0.0-1.0); EOS # 0.1 10^3/uL (0.0-0.5); EOS % 1.1 % (0.0-3.0); LYMPH # 0.8 10^3/uL (1.5-5.0); LYMPH % 15.0 % (24.0-44.0); MONO # 0.5 10^3/uL (0.0-0.8); MONO % 8.8 % (2.0-8.0); NEUTROPHILS # 3.9 10^3/uL (1.5-8.5); NEUTROPHILS % 74.1 % (36.0-66.0); PLATELET COUNT, AUTOMATED 269 10^3/uL (150-450)
[2024-11-21 14:41] LABS: ERYTHROCYTE SEDIMENTATION RATE 24 mm/hr (0-30)
[2024-11-21 15:14] LABS: ESTIMATED AVERAGE GLUCOSE 108.0 MG/DL (60-110)
[2024-11-21 15:18] LABS: TOTAL PROTEIN,RANDOM URINE 12.5 MG/DL (0.0-14.0)
[2024-11-21 15:21] LABS: C REACTIVE PROTEIN QUANTITATIV < 0.50 MG/DL (<1.0); IRON (FE) 58 UG/DL (50-170); PERCENT SATURATION 20.6 % (13.2-45.0)
[2024-11-21 15:22] LABS: ALT/SGPT 22 U/L (7.0-40); AST/SGOT 14 U/L (<34); CALCIUM LEVEL 9.0 MG/DL (8.3-10.6); CARBON DIOXIDE LEVEL 29 MMOL/L (20-31); CHLORIDE LEVEL 105 MMOL/L (98-107); CHOLESTEROL LEVEL 213 MG/DL (<200); CHOLESTEROL RISK RATIO 4.06 (<5); CREATININE FOR GFR 0.73 MG/DL (0.55-1.30); GLOMERULAR FILTRATION RATE 83.1 (>32); LDL CHOLESTEROL 140.4 MG/DL (<100); NON-HDL-C 160.6 MG/DL; POTASSIUM SERUM 4.5 MMOL/L (3.5-5.1); PTH INTACT 33.9 PG/ML (18.5-88.0); SODIUM LEVEL 142 MMOL/L (136-145); TOTAL 25(OH) VITAMIN D 92.5 NG/ML (20.0-100.0); TRIGLYCERIDES LEVEL 101 MG/DL (<150); VITAMIN B12 LEVEL 495 PG/ML (211-911)
[2024-11-22 11:57] LABS: INSULIN LEVEL 21.0 uIU/mL (<=18.4)
== END ==
LOC: M WUC 08:32
PROVIDERS: ATTEND Family Medicine
DX: E53.8 Deficiency of other specified B group vitamins (principal); M32.9 Systemic lupus erythematosus, unspecified; R73.01 Impaired fasting glucose; D50.9 Iron deficiency anemia, unspecified; E55.9 Vitamin D deficiency, unspecified; E78.2 Mixed hyperlipidemia; K74.00 Hepatic fibrosis, unspecified